=== PATIENT | male | born 1935 | race Caucasian/White ===

== ENCOUNTER → 2017-04-28 | Day surgery (SDC) | END | disposition home or self-care (01) ==

== ENCOUNTER 2017-05-14 06:30 | Inpatient (IN) | END 2017-05-19 15:05 | disposition home health service (06) | DRG 252 ==

== ENCOUNTER 2017-07-07 15:11 | Inpatient (IN) | END 2017-07-15 18:04 | disposition home health service (06) | DRG 263 ==